=== PATIENT | female | born 1965 | race Two or more races ===

== ENCOUNTER 2025-01-21 04:07 | Emergency (ER) | payer OTHER ==
[~2025-01-21] VITALS: Ht 170.2 cm; Wt 67.9 kg
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
[2025-01-21] MEDS: KETOROLAC TROMETH 60MG/2ML VIAL IM ONE (05:23)
[2025-01-21 05:29] VITALS: BP 158/78; PULSE 74; RESP 19; TEMP 98; O2SAT 98
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
[2025-01-21] MEDS ORDERED: METH4PAK PO (06:01)
[2025-01-21] MEDS ORDERED: METH-1181 PO (06:01)
== END 2025-01-21 06:02 | disposition home or self-care (01) ==
LOC: ER 04:07
DX: S56.811A Strain of other muscles, fascia and tendons at forearm level, right arm, initial encounter (principal); S13.8XXA Sprain of joints and ligaments of other parts of neck, initial encounter; V89.2XXA Person injured in unspecified motor-vehicle accident, traffic, initial encounter; Y93.I9 Activity, other involving external motion; Y92.488 Other paved roadways as the place of occurrence of the external cause; Y99.8 Other external cause status
CPT/HCPCS: 72125; 73080; 96372; 99285; J1885